=== PATIENT | female | born 1990 | race Caucasian/White ===

== ENCOUNTER 2025-04-22 06:15 | Day surgery (SDC) | payer BC, SELFPAY ==
[2025-04-22] VITALS (10 sets, daily range): BP systolic 103–134; BP diastolic 66–77; BMI 46.3
[2025-04-22] MEDS: TYLENOL 1000 MG PO (10:30)
[2025-04-22] MEDS: NORMOSOL-R/PLASMALYTE-A 1000 IV (10:31)
== END 2025-04-22 16:15 | disposition home or self-care (01) ==
LOC: SDS 06:15
PROVIDERS: ATTENDING PHYSICIAN Surgery
DX: K80.10 Calculus of gallbladder with chronic cholecystitis without obstruction (principal)
CPT/HCPCS: 47563; 74300; 76000; 88304; A4300